=== PATIENT | male | born 1960 | race Caucasian/White ===

== ENCOUNTER → 2019-06-10 | Outpatient (REF) | payer BC ==
[~2019-06-10] MED LIST: AMLO-310 PO; ATOR40TA75 PO; GABA-845 PO; IBUP-1114 PO; KETO10TAB PO; METF500T13 PO; NORC1TAB7 PO; ONDA4TAB6 PO
[2019-06-10 21:59] LABS: AMORPHOUS SEDIMENT SMALL (NEGATIVE); APPEARANCE, URINE CLOUDY (CLEAR); BACTERIA, URINE AUTO NEGATIVE (NEGATIVE); BILIRUBIN, URINE AUTO NEGATIVE (NEGATIVE); BLOOD, URINE BLOOD NEGATIVE (NEGATIVE); COLOR, URINE YELLOW (YELLOW); GLUCOSE, URINE (UA) AUTO NEGATIVE (NEGATIVE); KETONE, URINE AUTO NEGATIVE (NEGATIVE); LEUKOCYTE ESTERASE, URINE AUTO NEGATIVE (NEGATIVE); NITRITE, URINE AUTO NEGATIVE (NEGATIVE); PROTEIN, URINE AUTO NEGATIVE (NEGATIVE); RBC, URINE AUTO 1 /HPF (0-3); SPECIFIC GRAVITY URINE AUTO 1.014 (1.002-1.035); SQUAMOUS EPITHELIAL CELL UR AU 0 /HPF (0-6); UROBILINOGEN, URINE AUTO 0.2 mg/dL (0.0-2.0); WBC, URINE AUTO 0 /HPF (0-3)
[2019-06-11 00:13] LABS: CHLAMYDIA DNA AMPLIFICATION NEGATIVE (NEGATIVE); GC DNA AMPLIFICATION NEGATIVE (NEGATIVE)
== END ==
LOC: M LAB REF 11:32
PROVIDERS: ATTEND Nurse Practitioner Family
DX: N39.0 Urinary tract infection, site not specified (principal)

== ENCOUNTER 2019-06-13 07:49 | Emergency (ER) | payer BC ==
[~2019-06-13] VITALS: Ht 172.7 cm; Wt 113.6 kg
[2019-06-13] MEDS ORDERED: GABA-845 PO (08:39)
[2019-06-13] MEDS ORDERED: IBUP-1114 PO (08:39)
[2019-06-13] MEDS ORDERED: NS 1,000 ML IV ONE (08:45)
[2019-06-13] MEDS ORDERED: KETOROLAC 30 MG/ML VIAL (J1885) IV ONE (08:45)
[2019-06-13] MEDS ORDERED: ONDANSETRON 4MG/2ML VIAL (J2405) IV ONE (08:45)
[2019-06-13 08:59] LABS: BASO # 0.1 10^3/uL (0.0-0.2); BASO % 0.9 % (0.0-1.0); EOS # 0.2 10^3/uL (0.0-0.5); EOS % 1.4 % (0.0-3.0); HEMATOCRIT 46.6 % (42.0-52.0); HEMOGLOBIN 15.5 g/dl (13.5-17.5); LYMPH # 4.4 10^3/uL (1.5-5.0); LYMPH % 34.7 % (24.0-44.0); MEAN CORPUSCULAR HEMOGLOBIN 30.5 pg (27.0-33.0); MEAN CORPUSCULAR HGB CONC 33.3 g/dl (32.0-36.5); MEAN CORPUSCULAR VOLUME 91.7 fl (80.0-96.0); MONO # 1.4 10^3/uL (0.0-0.8); MONO % 10.8 % (0.0-5.0); NEUTROPHILS # 6.6 10^3/uL (1.5-8.5); NEUTROPHILS % 51.7 % (36.0-66.0); PLATELET COUNT, AUTOMATED 408 10^3/uL (150-450); RED BLOOD COUNT 5.08 10^6/uL (4.30-6.10); WHITE BLOOD COUNT 12.7 10^3/uL (4.0-10.0)
[2019-06-13] MEDS ORDERED: MORPHINE 4 MG/ML 1ML VIAL/SYRINGE (J2270) IV ONE ×2 (09:00→10:30)
--- NOTE | 2019-06-13 09:15 | REP ---
CT ABDOMEN AND PELVIS WITHOUT IV OR ORAL CONTRAST: RENAL STONE PROTOCOL. HISTORY: Left-sided flank pain, renal colic. No comparison imaging. CT FINDINGS: Digital preliminary gas blender radiograph demonstrates a normal bowel gas pattern. The lung bases are clear. There is no evidence of pleural effusion or upper abdominal ascites. The liver and spleen are normal in size, homogeneous in texture. No adrenal lesion is observed. The gallbladder and the pancreas are intact and unremarkable. There is no evidence of intrarenal calculus on either side. There is, however, mild to moderate left-sided hydronephrosis. There is some slight perinephric edema on the left compared to the right. The left ureter is very slightly prominent throughout its course, but no observable ureteral calculus is seen. No bladder calculus is seen. No right ureteral calculus is noted. Seminal vesicles and prostate are unremarkable. Small and large bowel loops are normal in caliber in the abdomen and pelvis. A tiny non-inflamed appendix is believed to be evident extending posteriorly and medially from the cecal tip. There is no CT evidence of appendicitis. There is some left colonic diverticulosis without CT evidence of diverticulitis. No abdominal wall defect is seen. Bone window settings show no bony destructive lesion. There is right-sided osteoarthritic facet disease at L5-S1. IMPRESSION: Left-sided hydronephrosis and hydroureter. Left perinephric edema. No calculus or mass seen. Recent stone passage versus pyelonephritis. Electronically Signed by Damir Vivar MD 06/13/2019 01:01 P
[2019-06-13 09:30] LABS: ALBUMIN 3.7 GM/DL (3.2-5.2); ALT/SGPT 50 U/L (12-78); BILIRUBIN,DIRECT 0.1 MG/DL (0.0-0.2); BILIRUBIN,TOTAL 0.7 MG/DL (0.2-1.0); BLOOD UREA NITROGEN 22 MG/DL (7-18); CALCIUM LEVEL 9.5 MG/DL (8.5-10.1); CARBON DIOXIDE LEVEL 28 MEQ/L (21-32); CHLORIDE LEVEL 103 MEQ/L (98-107); CREATININE FOR GFR 1.19 MG/DL (0.70-1.30); GLOMERULAR FILTRATION RATE > 60.0 (>56); GLUCOSE, FASTING 134 MG/DL (70-100); LIPASE 178 U/L (73-393); POTASSIUM SERUM 4.1 MEQ/L (3.5-5.1); SODIUM LEVEL 139 MEQ/L (136-145); TOTAL PROTEIN 7.3 GM/DL (6.4-8.2)
[2019-06-13] MEDS ORDERED: cefTRIAXone SOD 1 GM in D5W MINI-BAG PLUS 50 ML IV ONE (09:30)
[2019-06-13] MEDS ORDERED: METF500T13 PO (10:00)
[2019-06-13] MEDS ORDERED: AMLO-310 PO (10:00)
[2019-06-13] MEDS ORDERED: ATOR40TA75 PO (10:00)
[2019-06-13] MEDS ORDERED: NORC1TAB7 PO (11:34)
[2019-06-13] MEDS ORDERED: KETO10TAB PO (11:34)
[2019-06-13] MEDS ORDERED: ONDA4TAB6 PO (11:34)
[2019-06-13 11:50] VITALS: BP 161/95
== END 2019-06-13 11:50 | disposition home or self-care (01) ==
LOC: M ED 07:49
DX: N23 Unspecified renal colic (principal); N13.30 Unspecified hydronephrosis; N13.4 Hydroureter; Z79.84 Long term (current) use of oral hypoglycemic drugs; Z79.899 Other long term (current) drug therapy
CPT/HCPCS: 36415; 74176; 80048; 80076; 81001; 83690; 85025; 96361; 96365; 96375; 96376; 99284; J0696; J2270; J2405

== ENCOUNTER → 2019-06-15 | Outpatient (REF) | payer BC | LOC: M SMT 17:20 | PROVIDERS: ATTEND Urology | DX: N20.1 Calculus of ureter (principal) ==

== ENCOUNTER → 2019-06-29 | Outpatient (REF) | payer BC ==
[2019-06-29 17:29] LABS: APPEARANCE, URINE CLEAR (CLEAR); BACTERIA, URINE AUTO NEGATIVE (NEGATIVE); BILIRUBIN, URINE AUTO NEGATIVE (NEGATIVE); BLOOD, URINE BLOOD NEGATIVE (NEGATIVE); COLOR, URINE YELLOW (YELLOW); GLUCOSE, URINE (UA) AUTO NEGATIVE (NEGATIVE); KETONE, URINE AUTO NEGATIVE (NEGATIVE); LEUKOCYTE ESTERASE, URINE AUTO NEGATIVE (NEGATIVE); MUCUS, URINE SMALL (NEGATIVE); NITRITE, URINE AUTO NEGATIVE (NEGATIVE); PROTEIN, URINE AUTO NEGATIVE (NEGATIVE); RBC, URINE AUTO 0 /HPF (0-3); SPECIFIC GRAVITY URINE AUTO 1.008 (1.002-1.035); SQUAMOUS EPITHELIAL CELL UR AU 0 /HPF (0-6); UROBILINOGEN, URINE AUTO 0.2 mg/dL (0.0-2.0); WBC, URINE AUTO 1 /HPF (0-3)
== END ==
LOC: M SMT 16:41
PROVIDERS: ATTEND Nurse Practitioner Women's Health
DX: R36.1 Hematospermia (principal)

== ENCOUNTER → 2019-11-23 | Outpatient (REF) | payer BC ==
[~2019-11-23] MED LIST changes: -AMLO-310 PO; +AMLO-360 PO
[2019-11-23 15:42] LABS: INFLUENZA A AMPLIFICATION POSITIVE (NEGATIVE); INFLUENZA B AMPLIFICATION NEGATIVE (NEGATIVE)
== END ==
LOC: M LAB REF 14:59
PROVIDERS: ATTEND Physician Assistant
DX: J10.1 Influenza due to other identified influenza virus with other respiratory manifestations (principal)